=== PATIENT | male | born 1960 | race Caucasian/White ===

== ENCOUNTER → 2020-04-26 14:21 | Outpatient (CLI) | payer BC, SELFPAY ==
--- NOTE | ~2020-04-26 | MR_ITS ---
EXAMINATION: MR hip RT wo con DATE: 04/26/2020 15:40 INDICATION: Right hip pain TECHNIQUE: Magnetic resonance imaging (MRI) of the right hip was performed without intravenous contr ast. Sequences included full-field axial PD-weighted FS FSE and T1-weighted FSE, coronal of the pelvi s with PD-weighted FS FSE, small field of view of the right hip with axial PD-weighted FS FSE, sagit stefanie PD-weighted FS FSE and coronal PD weighted FS FSE. Additional radial T1-weighted FGR oriented ort hogonal to the acetabular rim were obtained for evaluation of the labrum. COMPARISON: None FINDINGS: Bones/labrum/cartilage: Alignment is normal. No fracture, avascular necrosis or pathologic marrow replacing process. Mild os teoarthritis at the right hip with nonuniform joint space narrowing with partial thickness cartilage loss most prominent most prominent at the anterosuperior and posterosuperior margins of the joint spa ce. There is diffuse labral degeneration with thickening and diffuse increased signal at the posterio r superior labrum and with diminutive anterior labrum. Fluid: Symmetric physiologic amount of fluid within both hip joints. Soft tissues: Normal and symmetric muscle bulk and signal in the pelvis and visualized proximal thighs. The iliopso as, gluteal and proximal hamstring tendons are normal. Moderate size bilateral fat-containing inguina l hernias. Mild sigmoid diverticulosis without adjacent inflammatory change to suggest diverticulitis . Normal appendix. Prostatomegaly. Bladder is unremarkable. No pathologically enlarged pelvic/inguin al lymphadenopathy. IMPRESSION: 1. Mild right hip osteoarthritis with diffuse labral degeneration. 2. Moderate-sized bilateral fat-containing inguinal hernias. 3. Mild sigmoid diverticulosis. Reviewed, dictated and finalized at location B. [employer]
== END ==
PROVIDERS: Visit Provider Orthopaedic Surgery
DX: K57.30 Diverticulosis of large intestine without perforation or abscess without bleeding (principal); K40.20 Bilateral inguinal hernia, without obstruction or gangrene, not specified as recurrent; M16.11 Unilateral primary osteoarthritis, right hip
CPT/HCPCS: 73721

== ENCOUNTER 2022-04-14 02:23 | Day surgery (SDC) | payer BC, SELFPAY ==
[2022-03-30 13:26] VITALS: BMI 34.0
[2022-04-14 12:22] VITALS: BP 150/93; PULSE 69; RESP 18; TEMP 36.3; O2SAT 98; BMI 34.2
[2022-04-14] MEDS: LACTATED RINGERS 1,000 ML 150 ML IV CONT (12:37)
--- NOTE | 2022-04-14 12:43 | WPDANESEPPF ---
Anes - Initial Pre Proc Eval Procedure: Operation Date: 04/14/22 13:45 Proposed Procedures p Screening Colonoscopy - Rayshawn Alcocer MD Date/Time: 04/14/22 12:43 Surgeon: Rayshawn Alcocer MD Pre Op Diagnosis: neoplasm screening Patient Data Age: 62 Gender: M Height: 1.75 m Weight: 105.1 kg Last Vital Signs Temp 36.3 C L 04/14/22 12:22 Pulse 69 04/14/22 12:22 Resp 18 04/14/22 12:22 BP 150/93 H 04/14/22 12:22 Pulse Ox 98 04/14/22 12:22 O2 Del Method Room Air 04/14/22 12:22 Allergies Allergy/AdvReac Type Severity Reaction Status Date / Time No Known Allergies Allergy Verified 04/14/22 12:27 Home Medications Medication Instructions Recorded Confirmed Type aspirin 81 mg tablet,delayed 81 mg PO DAILY 04/07/20 04/14/22 History release atorvastatin 10 mg tablet 10 mg PO DAILY #90 tabs 10/21/21 04/14/22 Rx amlodipine 10 mg-valsartan 160 mg 1 tablet PO DAILY #90 tabs 11/07/21 04/14/22 Rx tablet multivitamin 1 tablet PO DAILY 03/13/22 04/14/22 History naproxen sodium 220 mg tablet 220 mg PO BID PRN Pain 03/13/22 04/14/22 History (Flanax (naproxen)) cyclobenzaprine 10 mg tablet 10 mg PO HS PRN muscle spasms 03/30/22 04/14/22 History Patient hx anesthesia problems: none Family hx anesthesia problems: none Results Review: All pre-operative results and documents have been reviewed as part of the pre-operative evaluation. [facility] Past Medical History Medical History (Updated 04/14/22 @ 12:44 by Vasu Lopez MD) Cauliflower ear (~1974) DDD (degenerative disc disease), cervical Essential (primary) hypertension HTN (hypertension) Hyperlipidemia Obesity Surgical History Surgical History H/O colonoscopy with polypectomy History of knee surgery (~1984) RT patella History of tonsillectomy (~1965) Family History Family History Other Hypertension Social History Social History Smoking status: Current some day smoker Smoking end date: 02/26/90 Additional smoking assessment comments: 3-4 cigarettes per year Alcohol intake: current Drinks per week: 1 Substance use type: does not use Lack of Transportation: No Lack of Food: Never True Current Housing: I Have Housing Concerned About Future Housing: No Difficulty Paying Gas/Electric Bills: No Difficulty Paying for Meds: No Currently Unemployed: No Education: High School Diploma/GED Difficulty w/ Childcare or Family Care: No Living arrangements: with family Spiritual care concerns: No Anes - Eval Final PreProcedure Day of Procedure 04/14/22 12:43 Patient weight: obese Heart: regular rate and rhythm Lungs: clear to auscultation Airway: Mallampati scale class II Neurological: alert and oriented Last oral intake: >/= 8 hours ASA classification: III Emergent: no Anesthetic plan: proceed Anesthesia type and monitoring: general GIVS and standard monitoring Results Review: All pre-operative results and documents have been reviewed as part of the pre-operative evaluation. Informed Consent: The patient's anesthetic plan and its attendant risks and benefits were discussed with the patient/family/POA. Questions were solicited and answers provided to the satisfaction of the patient/family/POA.
--- NOTE | 2022-04-14 13:20 | PM.HPGS ---
History of Present Illness History of Present Illness Consent: Risks, benefits, and alternatives have been discussed and questions answered. Patient agrees to proceed with procedure. Chief complaint: neoplasm screening Narrative: Jose Kenney is a 62 year old male with colon polyps 5 years ago Review of Systems Constitutional: Constitutional: Denies headache(s) and Denies weakness Eyes: Eyes: Denies blurry vision ENT: Reports Normal hearing present, Denies headache(s) and Denies neck pain Cardiovascular: Cardiovascular: Denies chest pain and Denies dyspnea Respiratory: Respiratory: Denies dyspnea Gastrointestinal: Gastrointestinal: Reports no additional gastrointestinal complaints Genitourinary: Genitourinary: Denies dysuria Musculoskeletal: Musculoskeletal: Denies neck pain Integumentary/Breasts: Skin/Breast: Denies dry skin Neurologic: Reports Normal hearing present, Denies headache(s) and Denies weakness Psychiatric: Psychiatric: Denies anxiety Endocrine: Endocrine: Denies change in body appearance Hematologic/Lymphatic: Hematologic/Lymphatic: Denies easy bleeding Allergic/Immunologic: Allergic/Immunologic: Denies urticaria PMF Past Medical History Medical History (Updated 04/14/22 @ 13:21 by Rayshawn Alcocer MD) Cauliflower ear (~1974) Colon polyp DDD (degenerative disc disease), cervical Essential (primary) hypertension HTN (hypertension) Hyperlipidemia Obesity Surgical History Surgical History H/O colonoscopy with polypectomy History of knee surgery (~1984) RT patella History of tonsillectomy (~1965) Family History Family History Other Hypertension Social History Social History Smoking status: Current some day smoker Smoking end date: 02/26/90 Additional smoking assessment comments: 3-4 cigarettes per year Alcohol intake: current Drinks per week: 1 Substance use type: does not use Lack of Transportation: No Lack of Food: Never True Current Housing: I Have Housing Concerned About Future Housing: No Difficulty Paying Gas/Electric Bills: No Difficulty Paying for Meds: No Currently Unemployed: No Education: High School Diploma/GED Difficulty w/ Childcare or Family Care: No Living arrangements: with family Spiritual care concerns: No Meds Home Medications and Allergies Home Medications Medication Instructions Recorded Confirmed Type aspirin 81 mg tablet,delayed 81 mg PO DAILY 04/07/20 04/14/22 History release atorvastatin 10 mg tablet 10 mg PO DAILY #90 tabs 10/21/21 04/14/22 Rx amlodipine 10 mg-valsartan 160 mg 1 tablet PO DAILY #90 tabs 11/07/21 04/14/22 Rx tablet multivitamin 1 tablet PO DAILY 03/13/22 04/14/22 History naproxen sodium 220 mg tablet 220 mg PO BID PRN Pain 03/13/22 04/14/22 History (Flanax (naproxen)) cyclobenzaprine 10 mg tablet 10 mg PO HS PRN muscle spasms 03/30/22 04/14/22 History Allergies Allergy/AdvReac Type Severity Reaction Status Date / Time No Known Allergies Allergy Verified 04/14/22 12:27 Vital Signs Vital Signs - 24 hr 04/14/22 12:22 Temperature 97.4 F L Pulse Rate 69 Respiratory Rate 18 Blood Pressure 150/93 H Pulse Oximetry 98 Oxygen Delivery Room Air Exam Const: General: comfortable and no acute distress HENMT: Face/Nose/Sinus: Normal nares present Eyes: General: appearance normal, both eyes and all related structures Neck: Neck: no JVD Resp: Auscultation: clear to auscultation bilaterally Cardio: Rate: regular rate Rhythm: regular rhythm GI: Inspection: non-distended GI Palp: Yes Soft to palpation Skin: General skin exam: normal color Neuro: General: gait normal Speech: normal speech Extrem: General: normal to inspection Psych: Mental Status: mental status david
[2022-04-14 13:32] VITALS: BP 132/82; PULSE 63; RESP 23; O2SAT 94
[2022-04-14 13:42] VITALS: BP 136/87; PULSE 57; RESP 15; O2SAT 97
[2022-04-14 13:52] VITALS: BP 148/90; PULSE 57; RESP 15; O2SAT 99
== END 2022-04-14 14:07 | disposition home or self-care (01) ==
PROVIDERS: PCP Family Medicine; Visit Provider Internal Medicine Gastroenterology
PROC: 0DJD8ZZ Inspection of Lower Intestinal Tract, Via Natural or Artificial Opening Endoscopic (ICD-10-PCS; CPT 45378; principal; 2022-04-14 13:45)
DX: Z12.11 Encounter for screening for malignant neoplasm of colon (principal); D12.0 Benign neoplasm of cecum; K57.30 Diverticulosis of large intestine without perforation or abscess without bleeding; I10 Essential (primary) hypertension; E78.5 Hyperlipidemia, unspecified; E66.9 Obesity, unspecified; Z68.34 Body mass index [BMI] 34.0-34.9, adult; Z87.891 Personal history of nicotine dependence; Z79.82 Long term (current) use of aspirin
CPT/HCPCS: 45380; 88305; J2704; J7120

== ENCOUNTER 2023-10-15 08:55 | Outpatient (CLI) | payer BC, SELFPAY ==
[2023-10-15 14:28] LABS: Basophils Absolute Auto 0.1 K/mm3 (0.0-0.1); Basophils Percent Auto 0.4 % (0.2-1.2); Eosinophils Absolute Auto 0.3 K/mm3 (0-0.3); Eosinophils Percent Auto 2.5 % (0-4.4); Hematocrit 51.3 % (42.0-52.0); Hemoglobin 16.7 g/dL (14.0-18.0); Immature Granulocyte Absolute 0.04 K/mm3 (0.00-0.031); Immature Granulocyte Percent A 0.3 % (0-0.5); Lymphocytes Absolute Auto 1.51 K/mm3 (0.9-3.2); Lymphocytes Percent Auto 12.8 % (18.3-44.2); Mean Corpuscular HGB Conc 32.6 g/dl (32-36); Mean Corpuscular Volume 95.4 fl (80-100); Monocytes Absolute Auto 0.8 K/mm3 (0.1-0.6); Neutrophils Absolute Auto 9.1 K/mm3 (1.3-6.7); Platelet Count Result 319 k/mm3 (150-375); Red Blood Count 5.38 M/mm3 (4.6-6.20); Red Cell Distribution Width 12.7 % (11.5-14.5); White Blood Count 11.8 K/mm3 (4.5-10.0)
[2023-10-15 18:19] LABS: Alanine Aminotransferase 23 U/L (6-50); Albumin Level 4.8 g/dL (3.5-5.1); Alkaline Phosphatase 110 U/L (38-126); Anion Gap 10 mmol/L (4-12); Aspartate Amino Transferase 52 U/L (17-59); Bilirubin,Total 0.5 mg/dL (0.2-1.3); Blood Urea Nitrogen 23 mg/dL (9-20); Calcium 9.9 mg/dL (8.4-10.2); Carbon Dioxide 28 mmol/L (22-30); Chloride 103 mmol/L (98-107); Cholesterol 152 mg/dL (0-200); Estimated Glomerular Filt Rate > 60; Glucose 84 mg/dL (65-110); HDL Direct 48 mg/dL; Potassium 4.8 mmol/L (3.4-5.0); Sodium 141 mmol/L (137-145); Triglycerides 94 mg/dL (<150)
[2023-10-15 18:29] LABS: LDL Cholesterol Direct 81 mg/dL
== END 2023-10-15 08:56 | disposition home or self-care (01) ==
LOC: ANHGOSHLAB 08:56
PROVIDERS: PCP Family Medicine; Visit Provider Nurse Practitioner Family
DX: E78.5 Hyperlipidemia, unspecified (principal); Z12.5 Encounter for screening for malignant neoplasm of prostate; E03.9 Hypothyroidism, unspecified; I10 Essential (primary) hypertension; Z13.220 Encounter for screening for lipoid disorders; Z00.00 Encounter for general adult medical examination without abnormal findings
CPT/HCPCS: 36415; 80053; 80061; 84153; 84443; 85025; G0103